=== PATIENT | male | born 1995 | race Two or more races ===

== ENCOUNTER 2017-04-29 13:36 | Emergency (ER) | payer OTHER ==
[~2017-04-29] VITALS: Ht 177.8 cm; Wt 77.1 kg
[2017-04-29 15:02] VITALS: BP 138/93
[2017-04-29] MEDS ORDERED: AZITHROMYCIN 250 MG TAB PO ONE (16:15)
[2017-04-29] MEDS ORDERED: cefTRIAXone SOD 1,000 MG VL IM ONE (16:15)
== END 2017-04-29 16:36 | disposition home or self-care (01) ==
LOC: ER 13:52
DX: R36.9 Urethral discharge, unspecified (principal); F17.210 Nicotine dependence, cigarettes, uncomplicated; Z20.2 Contact with and (suspected) exposure to infections with a predominantly sexual mode of transmission
CPT/HCPCS: 81002; 96372; 99283; J0696